=== PATIENT | female | born 1980 | race Caucasian/White ===

== ENCOUNTER 2019-03-02 21:26 | Emergency (ER) | payer OTHER ==
[2019-03-02] MEDS ORDERED: FENTANYL CITR 100 MCG/2 ML ONE ×2 (21:32→22:40)
[2019-03-02] MEDS ORDERED: ONDANSETRON 4 MG/2 ML VIAL ONE ×2 (22:40→23:40)
[2019-03-02] MEDS ORDERED: KETAMINE HCL 500 MG/5 ML VIAL ONE (22:40)
--- NOTE | 2019-03-02 23:39 | RAD REPORT ---
EXAM DESCRIPTION: RAD - Ankle Left 3 View - 03/02/2019 10:07 pm CLINICAL HISTORY: Pain;Deformity COMPARISON: No comparisons FINDINGS: Trimalleolar fracture dislocation of the left ankle is seen with significant soft tissue s welling evident. Small plantar calcaneal spur noted.
--- NOTE | 2019-03-02 23:40 | RAD REPORT ---
EXAM DESCRIPTION: RAD - Lumbar Spine 3 Views - 03/02/2019 10:07 pm CLINICAL HISTORY: PAIN Radiculopathy COMPARISON: No comparisons FINDINGS: Vertebral body heights appear maintained. No compression fracture noted. Mild disc thinnin g is seen throughout the lower lumbar levels, most notable at L5-S1. No spondylolysis or spondylolist hesis. IMPRESSION: No acute lumbar spine abnormality detected.
--- NOTE | 2019-03-03 00:34 | EDPHYS ---
Physician Documentation [facility] Name: Eleanor Lakhani Age: 38 yrs Sex: Female : 1980 Arrival Date: 03/02/2019 Time: 21:29 Bed 23 Private MD: ED Physician Ulices Yip HPI: 03/03 00:05 This 38 yrs old Female presents to ER via EMS with complaints of Leg Injury. jr8 00:05 The patient presents with decreased range of motion, a deformity, pain. The complaints jr8 affect the left ankle. Context: The problem was sustained at home, resulted from the patient falling, the patient is not able to bear weight, the patient is not able to ambulate, Problem is a result from a previous injury: No. Onset: The symptoms/episode began/occurred acutely, today. Modifying factors: The symptoms are alleviated by nothing. the symptoms are aggravated by movement. Associated signs and symptoms: The patient has no apparent associated signs or symptoms. Treatment prior to arrival includes: splinting the affected extremity. Severity of symptoms: At their worst the symptoms were moderate. The patient has not experienced similar symptoms in the past. The patient has not recently seen a physician. Patient stated that she was coming down her stairs at home and missed the step causing her to fall several steps down. Hit back of head, low back, and left ankle. Denies LOC. . 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 - Social history:: Smoking status: Patient/guardian denies using tobacco. - Ebola Screening: : Patient denies travel to an Ebola-affected area in the 21 days before illness onset. ROS: 03/03 00:05 Eyes: Negative for injury, pain, redness, and discharge, ENT: Negative for injury, jr8 pain, and discharge, Neck: Negative for injury, pain, and swelling, Cardiovascular: Negative for chest pain, palpitations, and edema, Respiratory: Negative for shortness of breath, cough, wheezing, and pleuritic chest pain, Abdomen/GI: Negative for abdominal pain, nausea, vomiting, diarrhea, and constipation, Neuro: Negative for headache, weakness, numbness, tingling, and seizure. Back: Positive for pain at rest, of the lumbar area. MS/extremity: Positive for injury or acute deformity, decreased range of motion, ecchymosis, pain, swelling, tenderness, of the left ankle. Skin: Positive for hematoma, of the scalp. Exam: 00:05 Eyes: Pupils equal round and reactive to light, extra-ocular motions intact. Lids and jr8 lashes normal. Conjunctiva and sclera are non-icteric and not injected. Cornea within normal limits. Periorbital areas with no swelling, redness, or edema. ENT: Nares patent. No nasal discharge, no septal abnormalities noted. Tympanic membranes are normal and external auditory canals are clear. Oropharynx with no redness, swelling, or masses, exudates, or evidence of obstruction, uvula midline. Mucous membranes moist. Neck: Trachea midline, no thyromegaly or masses palpated, and no cervical lymphadenopathy. Supple, full range of motion without nuchal rigidity, or vertebral point tenderness. No Meningismus. Chest/axilla: Normal chest wall appearance and motion. Nontender with no deformity. No lesions are appreciated. Cardiovascular: Regular rate and rhythm with a normal S1 and S2. No gallops, murmurs, or rubs. Normal PMI, no JVD. No pulse deficits. Respiratory: Lungs have equal breath sounds bilaterally, clear to auscultation and percussion. No rales, rhonchi or wheezes noted. No increased work of breathing, no retractions or nasal flaring. Abdomen/GI: Soft, non-tender, with normal bowel sounds. No distension or tympany. No guarding or rebound. No evidence of tenderness throughout. Skin: Warm, dry with normal turgor. Normal color with no rashes, no lesions, and no evidence of cellulitis. Neuro: Awake and alert, GCS 15, oriented to person, place, time, and situation. Cranial nerves II-XII grossly intact. Motor strength 5/5 in all extremities. Sensory grossly intact. Cerebellar exam normal. Normal gait. 00:05 Head/face: Noted is hematoma, that is mild, of the right base of the skull, tenderness, that is mild, of the right base of the skull. 00:05 Back: pain, that is mild, of the lumbar area, mild bruising noted to L2 region of back. 00:05 Musculoskeletal/extremity: Extremities: grossly normal except: noted in the left ankle: Patient has swelling, bruising, abrasion, and tenderness to left ankle with obvious deformity noted , ROM: limited active range of motion, in the left ankle, limited passive range of motion, in the left ankle, limited active range of motion due to pain, in the left ankle, limited passive range of motion due to pain, in the left ankle, Pulses: noted to be 2+ in the right posterior tibial artery, right dorsalis pedis artery, left posterior tibial artery and left dorsalis pedis artery, Sensation intact. Vital Signs: 03/02 21:44 BP 133 / 62; Pulse 116; Resp 20; Temp 98.8; Pulse Ox 97% on R/A; Weight 72.57 kg (R); aj1 Height 5 ft. 2 in. (157.48 cm) (R); Pain 7/10; 23:00 BP 132 / 89; Pulse 97; Resp 19; Pulse Ox 99% on R/A; rv 23:30 BP 119 / 67; Pulse 102; Resp 16; Pulse Ox 99% on 2 lpm NC; rv 03/03 00:00 BP 106 / 50; Pulse 92; Resp 18; Pulse Ox 98% on R/A; rv 00:30 BP 111 / 60; Pulse 94; Resp 17; Pulse Ox 98% on R/A; rv 01:00 BP 115 / 57; Pulse 90; Resp 16; Temp 98.4; Pulse Ox 99% on R/A; rv 03/02 21:44 Body Mass Index 29.26 (72.57 kg, 157.48 cm) aj1 Procedures: 00:05 Reduction: of the left ankle, using traction, manipulation, Immobilized with OCL jr8 splint, Patient tolerated well. Post reduction film - reveals normal alignment. Moderate sedation: Pre-procedure assessment: the patient has been NPO 5 hour(s) prior to arrival, ASA physical classification: I - healthy, no underlying organic disease, Airway assessment: able to hyperextend neck, able to maintain airway, can open mouth without difficulty, Mallampati classification of tongue size: II - faucial pillars and soft palate can be visualized, but uvula is masked by the base of the tongue, Monitoring during procedure: monitoring tech, continuous pulse oximetry, nurse at bedside at all times, Medications employed: Fentanyl, 50 mcg(s), Ketamine, 70 mg(s), Post-procedure assessment: the patient is moderately sedated, Valenzuela sedation score: 5 - sluggish response to a light glabellar tap, Respiratory status: even and unlabored, a reversal agent was not used. MDM: 03/02 21:30 Patient medically screened. jr8 03/03 00:33 Data reviewed: vital signs, nurses notes, radiologic studies, plain films. Data jr8 interpreted: Pulse oximetry: on room air is 97 %. Interpretation: normal. Counseling: I had a detailed discussion with the patient and/or guardian regarding: the historical points, exam findings, and any diagnostic results supporting the discharge/admit diagnosis, radiology results, the need to transfer to another facility, for higher level of care. ED course: Discussed case with Dr. Giang. Patient requiring higher level of care secondary to complexity of fracture . 03/02 21:30 Order name: XRAY Ankle LEFT 3 view; Complete Time: 23:56 jr8 03/02 21:30 Order name: XRAY Lumbar Spine (3 Views); Complete Time: 23:56 jr8 03/02 23:22 Order name: Ankle Left 3 View XRAY fc 03/02 22:29 Order name: Conscious Sedation; Complete Time: 22:44 jr8 03/02 22:30 Order name: Misc. Order: consent for sedation; Complete Time: 22:44 jr8 Administered Medications: 03/02 21:38 Drug: fentaNYL (PF) 50 mcg Route: IVP; Site: right antecubital; [facility] 03/03 01:11 Follow up: Response: RASS: Alert and Calm (0) 03/02 22:45 Drug: fentaNYL (PF) 50 mcg {Note: rass 0.} Route: IVP; Site: right antecubital; [facility] 03/03 01:12 Follow up: Response: RASS: Alert and Calm (0) 03/02 22:45 Drug: Zofran 4 mg Route: IVP; Site: right antecubital; [facility] 03/03 01:12 Follow up: Response: No adverse reaction 03/02 23:00 Drug: Ketamine 1 mg/kg {Note: USED FOR CONSCIOUS SEDATION BY SINDI..} Route: IVP; rv Site: right antecubital; 03/03 01:30 Follow up: Response: No adverse reaction rv 03/02 23:43 Drug: Zofran 4 mg Route: IVP; Site: right antecubital; rv 03/03 01:12 Follow up: Response: Marked relief of symptoms rv Disposition: 01:49 Co-signature as Attending Physician, Ulices Yip MD. pkkristin Disposition: 03/03/19 00:33 Transfer ordered to [facility]. Diagnosis is Trimalleolar fracture of lower leg. - Reason for transfer: Higher level of care. - Accepting physician is [place]. - Condition is Stable. - Problem is new. - Symptoms have improved. Signatures: Dispatcher [employer] EDMS Kamla Moy RN RN aj1 Ulices Yip MD MD pkl Roszak, Josh, PA PA jr8 Pedro Sawant RN RN rv Corrections: (The following items were deleted from the chart) 01:45 00:33 03/03/2019 00:33 Transfer ordered to [facility]. rv Diagnosis is Trimalleolar fracture of lower leg. Reason for transfer: Higher level of care. Accepting physician is [place]. Condition is Stable. Problem is new. Symptoms have improved. rv
--- NOTE | 2019-03-03 00:34 | ER ---
Nurse's Notes [facility] Name: Eleanor Lakhani Age: 38 yrs Sex: Female : 1980 Arrival Date: 03/02/2019 Time: 21:29 Bed 23 Private MD: Diagnosis: Trimalleolar fracture of lower leg Presentation: 03/02 21:41 Presenting complaint: Patient states: She fell down 14 stairs, reports pain to left aj1 ankle and back of head. Bruising noted to mid back, patient reports that she hit her back when she fell. Bruising and deformity noted to left ankle. Patient denies LOC, vomiting. Transition of care: patient was not received from another setting of care. Onset of symptoms was March 02, 2019. Risk Assessment: Do you want to hurt yourself or someone else? Patient reports no desire to harm self or others. Initial Sepsis Screen: Does the patient meet any 2 criteria? No. Patient's initial sepsis screen is negative. Does the patient have a suspected source of infection? No. Patient's initial sepsis screen is negative. Care prior to arrival: None. 21:41 Method Of Arrival: EMS: [facility] aj 21:41 Acuity: ROXANA 3 aj1 Triage Assessment: 21:44 General: Appears uncomfortable, Behavior is calm, cooperative, appropriate for age. aj1 Pain: Complains of pain in scalp, mid back area and left lateral ankle Pain currently is 7 out of 10 on a pain scale. Musculoskeletal: Range of motion: limited in left ankle. Injury Description: patient reports fall down 14 stairs. RN L AND D: 21:44 LMP 03/02/2019 aj1 Historical: - Allergies: 21:44 No Known Allergies; aj1 - Home Meds: 21:44 Omeprazole Oral [Active]; aj1 - PMHx: 21:44 GERD; aj1 - PSHx: 21:44 Cholecystectomy; aj1 - Immunization history:: Flu vaccine is up to date. - Social history:: Smoking status: Patient/guardian denies using tobacco. - Ebola Screening: : Patient denies travel to an Ebola-affected area in the 21 days before illness onset. Screenin:46 Abuse screen: Denies threats or abuse. Denies injuries from another. Nutritional aj1 screening: No deficits noted. Tuberculosis screening: No symptoms or risk factors identified. Fall Risk Fall in past 12 months (25 points). No secondary diagnosis (0 pts). IV access (20 points). Ambulatory Aid- None/Bed Rest/Nurse Assist (0 pts). Gait- Impaired (20 pts.). Mental Status- Oriented to own ability (0 pts). Total Nice Fall Scale indicates High Risk Score (45 or more points). As available patient and family educated on Fall Prevention Program and Strategies. Assessment: 21:46 General: Appears in no apparent distress. uncomfortable, Behavior is calm, cooperative, aj1 appropriate for age. Pain: Complains of pain in scalp and left lateral ankle and mid back area Pain does not radiate. Pain currently is 7 out of 10 on a pain scale. Neuro: Level of Consciousness is awake, alert, obeys commands, Oriented to person, place, time, situation. Cardiovascular: Patient's skin is warm and dry. Respiratory: Airway is patent Respiratory effort is even, unlabored, Respiratory pattern is regular, symmetrical. GI: No signs and/or symptoms were reported involving the gastrointestinal system. : No signs and/or symptoms were reported regarding the genitourinary system. EENT: No signs and/or symptoms were reported regarding the EENT system. Derm: Skin is pink, warm \T\ dry. normal, Bruising that is on left lateral ankle and mid back area. Musculoskeletal: Range of motion: limited in left ankle Bony deformity noted of left ankle Swelling present in left lateral ankle. 23:03 Reassessment: Patient appears in no apparent distress at this time. patient is being rv prepared for conscious sedation for closed reduction of the left ankle. Nicola and Sindi explained the procedure to the patient and the family. consent signed. 23:49 Reassessment: Patient appears in no apparent distress at this time. Reassessment: rv conscious sedation for closed reduction done by Miles. repeat x-ray of the left foot done. awaiting result. General: Appears in no apparent distress. comfortable, Behavior is calm, cooperative. Pain: Denies pain. 03/03 01:18 Reassessment: SINDI DISCUSSED THE PLAN OF CARE. PATIENT IS FOR TRANSFER TO A MORE rv CAPABLE FACILITY TO EVALUATE FOR TRAUMA ORTHO SURGERY OF THE LEFT FOOT. GOT THE ACCEPTANCE FROM [facility]. CONSENT FOR TRANSFER IS SIGNED. GIVEN REPORT TO FLOSI, RN. AWAITING EMS FOR TRANSPORTATION. PATIENT AND FAMILY UPDATED ON WAITING TIME. Vital Signs: 03/02 21:44 BP 133 / 62; Pulse 116; Resp 20; Temp 98.8; Pulse Ox 97% on R/A; Weight 72.57 kg (R); aj1 Height 5 ft. 2 in. (157.48 cm) (R); Pain 7/10; 23:00 BP 132 / 89; Pulse 97; Resp 19; Pulse Ox 99% on R/A; rv 23:30 BP 119 / 67; Pulse 102; Resp 16; Pulse Ox 99% on 2 lpm NC; rv 03/03 00:00 BP 106 / 50; Pulse 92; Resp 18; Pulse Ox 98% on R/A; rv 00:30 BP 111 / 60; Pulse 94; Resp 17; Pulse Ox 98% on R/A; rv 01:00 BP 115 / 57; Pulse 90; Resp 16; Temp 98.4; Pulse Ox 99% on R/A; rv 03/02 21:44 Body Mass Index 29.26 (72.57 kg, 157.48 cm) aj1 ED Course: 03/02 21:29 Patient arrived in ED. fc 21:30 Holden Patel PA is PHCP. jr8 21:30 Ulices Yip MD is Attending Physician. jr8 21:31 Kamla Moy, SHELL is Primary Nurse. aj1 21:43 Triage completed. aj1 21:44 Arm band placed on. aj1 21:46 Patient has correct armband on for positive identification. Bed in low position. Call aj1 light in reach. Side rails up X 1. 21:46 Maintain EMS IV. Dressing intact. Good blood return noted. Site clean \T\ dry. Gauge \T\ aj 1 site: 20 g right AC. 22:06 XRAY Ankle LEFT 3 view In Process Unspecified. EDMS 22:06 XRAY Lumbar Spine (3 Views) In Process Unspecified. EDMS 23:44 Ankle Left 3 View XRAY In Process Unspecified. EDMS 23:50 Assist provider with reduction of left ankle using manipulation, Set up for procedure. rv Performed by Holden DONOHUE Immobilized with orthogloass splinting of the left leg with posterior long leg with stirrups. 03/03 01:18 Patient transferred, IV remains in place. rv Administered Medications: 03/02 21:38 Drug: fentaNYL (PF) 50 mcg Route: IVP; Site: right antecubital; [facility] 03/03 01:11 Follow up: Response: RASS: Alert and Calm (0) rv 03/02 22:45 Drug: fentaNYL (PF) 50 mcg {Note: rass 0.} Route: IVP; Site: right antecubital; [facility] 03/03 01:12 Follow up: Response: RASS: Alert and Calm (0) rv 03/02 22:45 Drug: Zofran 4 mg Route: IVP; Site: right antecubital; [facility] 03/03 01:12 Follow up: Response: No adverse reaction rv 03/02 23:00 Drug: Ketamine 1 mg/kg {Note: USED FOR CONSCIOUS SEDATION BY SINDI..} Route: IVP; rv Site: right antecubital; 03/03 01:30 Follow up: Response: No adverse reaction rv 03/02 23:43 Drug: Zofran 4 mg Route: IVP; Site: right antecubital; rv 03/03 01:12 Follow up: Response: Marked relief of symptoms rv Outcome: 00:33 ER care complete, transfer ordered by MD. rv 01:18 Transferred by ground EMS to [facility], Transfer form completed. X-rays sent rv w/ patient. 01:18 Condition: stable 01:18 Instructed on the need for transfer. 01:45 Patient left the ED. rv Signatures: Dispatcher [employer] EDMS Kamla Moy RN RN aj1 Sofia Wilburn RN RN fc Roszak, Josh, PA PA jr8 Pedro Sawant RN RN rv Corrections: (The following items were deleted from the chart) 03/02 23:49 23:03 Reassessment: Patient appears in no apparent distress at this time. patient is rv being prepared for conscious sedation for closed reduction. Opal talked to the patient. signed consent form. aj1 23:52 21:46 No provider procedures requiring assistance completed. aj1 rv
[2019-03-03 02:55] VITALS: BP 115/57; TEMP 98.4; O2SAT 99
--- NOTE | 2019-03-03 06:34 | RAD REPORT ---
EXAM DESCRIPTION: RAD - Ankle Left 3 View - 03/02/2019 11:43 pm CLINICAL HISTORY: post reduction COMPARISON: Ankle Left 3 View dated 03/02/2019 FINDINGS: The previously noted left ankle fracture dislocation has been reduced and placed within a splint. Bone detail is obscured.
== END 2019-03-03 01:45 | disposition short-term general hospital (02) ==
LOC: ER 21:26
PROC: 0QSHXZZ Reposition Left Tibia, External Approach (ICD-10-PCS; principal; 2019-03-03)
DX: S82.852A Displaced trimalleolar fracture of left lower leg, initial encounter for closed fracture (principal); W10.9XXA Fall (on) (from) unspecified stairs and steps, initial encounter; Y93.01 Activity, walking, marching and hiking; Y92.009 Unspecified place in unspecified non-institutional (private) residence as the place of occurrence of the external cause; K21.9 Gastro-esophageal reflux disease without esophagitis
CPT/HCPCS: 72100; 73610 ×2; 96375; 96374; 99285; 27818; J3010 ×2; J2405 ×2